=== PATIENT | female | born 1995 | race Caucasian/White ===

== ENCOUNTER 2018-12-25 16:48 | Emergency (ER) | payer SELFPAY | END 2018-12-25 18:48 | disposition home or self-care (01) | LOC: JERFT 16:48 ==

== ENCOUNTER 2019-06-17 04:15 | Emergency (ER) | payer SELFPAY ==
[2019-06-17 04:59] VITALS: TEMP 98; BMI 21.4
[2019-06-17] MEDS ORDERED: ONDANSETRON 4 MG/2 ML VIAL IVPUSH ONE (05:15)
[2019-06-17] MEDS ORDERED: ACETAMINOPHEN 1000 MG/100 ML VIAL (NON FORMULARY) IVPB ONE (05:15)
--- NOTE | 2019-06-17 05:15 | PDOC ---
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 Pt reported her pain is intermittent, only present when she cough, alleviated by not coughing. She reported she has had productive green cough x3 days, and her boyfriend has similar symptoms. She reported feeling warm yesterday, but did not take her temperature. She admitted to nausea. She admitted to two weeks of loose watery diarrhea. She denied vomiting, chest pain, shortness of breath, vaginal bleeding, vaginal discharge. Pt reported her LMP was 3-4 weeks ago, she took a urine test last week that was positive, this would be her first . ROS General: denied fever, chills, generalized weakness. HEENT: admitted to sore throat, rhinorrhea. denied ear pain. Cardiovascular: denied chest pain, palpitations, syncope, diaphoresis. Respiratory: admitted to cough, sputum production. denied shortness of breath, hemoptysis. Gastrointestinal: admitted to abdominal pain, nausea. denied vomiting, diarrhea , constipation, blood in stool. Genitourinary: denied dysuria, increased urinary frequency, hematuria, urinary incontinence, flank pain. Back: denied back pain. Musculoskeletal: denied joint pain, muscle pain, joint swelling. Neurological: denied headache, dizziness, numbness, tingling, weakness. Integumentary: denied rash, laceration, abrasion. Hematologic/Lymphatic: denied bruising or bleeding. PE Constitutional: Well-nourished, Well-developed, appearing stated age. HEENT: head is normocephalic, atraumatic. EOMI. PERRLA. no posterior pharyngeal erythema.no tonsillar swelling or exudates bilaterally. uvula midline. no peritonsillar swelling, tenderness or abscess. no jaw tenderness or misalignment. Neck: supple. Full ROM. Cardiovascular: regular heart rhythm. no murmurs. no pericardial friction rub. Respiratory: clear to auscultation bilaterally. no crackles, rhonchi or wheezing. no stridor. Gastrointestinal: soft, flat. tenderness to palpation in RLQ/suprapubic area/LLQ , worst in the LLQ. Positive rovsings. normal bowel sounds. no rebound, guarding , masses. negative obtruator. negative mcburneys. negative psoas. Extremities: peripheral pulses intact. no lower extremity edema. Neurological: CN 2-12 grossly intact. moves all four extremities. Psych: awake, alert, oriented x3. follows commands. answers questions appropriately. Pelvic: normal external genitalia. no CMT. no adnexal tenderness. white/yellow tinged discharge noted. <Hortencia Arce - Last Filed: 06/17/19 18:38> <Jr Cool - Last Filed: 06/19/19 10:43> - General Chief Complaint: Cold Symptoms Stated Complaint: COLD SYMPTOMS Time Seen by Provider: 06/17/19 04:32 Past History - Psycho Social/Smoking Cessation Hx Smoking History: Never smoked Have you smoked in the past 12 months: No Information on smoking cessation initiated: No Hx Alcohol Use: No Drug/Substance Use Hx: No <Hortencia Arce - Last Filed: 06/17/19 18:38> <Jr Cool - Last Filed: 06/19/19 10:43> - Past Medical History Allergies/Adverse Reactions: Allergies Allergy/AdvReac Type Severity Reaction Status Date / Time No Known Allergies Allergy Verified 12/25/18 16:53 Home Medications: Ambulatory Orders Nitrofurantoin Monohyd/M-Cryst [Macrobid -] 100 mg PO BID #14 capsule 12/25/18 *Physical Exam - Vital Signs Last Vital Signs Temp Pulse Resp BP Pulse Ox 98.0 F 83 18 122/96 100 06/17/19 04:45 06/17/19 04:45 06/17/19 04:45 06/17/19 04:45 06/17/19 04:45 <Hortencia Arce - Last Filed: 06/17/19 18:38> - Vital Signs Last Vital Signs Temp Pulse Resp BP Pulse Ox 98.0 F 82 17 119/85 99 06/17/19 04:45 06/17/19 11:47 06/17/19 11:47 06/17/19 11:47 06/17/19 11:47 <Jr Cool - Last Filed: 06/19/19 10:43> ED Treatment Course - LABORATORY CBC & Chemistry Diagram: 06/17/19 05:05 06/17/19 05:05 <Hortencia Arce - Last Filed: 06/17/19 18:38> - LABORATORY CBC & Chemistry Diagram: 06/17/19 05:05 06/17/19 05:05 - ADDITIONAL ORDERS Additional order review: 06/17/19 06:37 Urine Culture - Final Urine - Urine Clean Catch NO GROWTH OBTAINED 06/17/19 05:05 RBC 4.07 MCV 91.9 MCHC 34.4 RDW 13.2 MPV 7.2 L Neutrophils % 64.7 Lymphocytes % 24.9 Monocytes % 7.4 Eosinophils % 2.2 Basophils % 0.8 - RADIOLOGY Radiology Studies Ordered: Category Date Time Status TRANSVAGINAL ULTRASOUND US [US] Stat Ultrasound 06/17/19 05:44 Completed - Medications Given in the ED: ED Medications Discontinued Medications Generic Name Dose Route Start Last Admin Trade Name Marcela PRN Reason Stop Dose Admin Acetaminophen 1,000 mg 06/17/19 05:15 06/17/19 05:30 Ofirmev Injection - IVPB 06/17/19 05:16 1,000 mg ONCE ONE Administration Ondansetron HCl 4 mg 06/17/19 05:15 06/17/19 05:30 Zofran Injection IVPUSH 06/17/19 05:16 4 mg ONCE ONE Administration <Ou,Jr - Last Filed: 06/19/19 10:43> Medical Decision Making - Medical Decision Making 24 year old female with above PMH presented to ED for right sided abdominal pain associated with nausea, also c/o diarrhea x2 weeks, also c/o productive cough, feeling warm. Initial Vital Signs Temp Pulse Resp BP Pulse Ox 98.0 F 83 18 122/96 100 06/17/19 04:45 06/17/19 04:45 06/17/19 04:45 06/17/19 04:45 06/17/19 04:45 Afebrile. No tachycardia. No tachypnea. No hypotension. No hypoxia on room air. Labs ordered: CBC, CMP, serum , UA/UC, lipase, GC/Chlamydia swab Imaging ordered: none Medications ordered: zofran 4 mg IV once, tylenol IV once 06/17/19 06:43 CBC WBC 14.2 K/mm3 (4.0-10.0) H 06/17/19 05:05 RBC 4.07 M/mm3 (3.60-5.2) 06/17/19 05:05 Hgb 12.9 GM/dL (10.7-15.3) 06/17/19 05:05 Hct 37.4 % (32.4-45.2) 06/17/19 05:05 MCV 91.9 fl (80-96) 06/17/19 05:05 MCH 31.6 pg (25.7-33.7) 06/17/19 05:05 MCHC 34.4 g/dl (32.0-36.0) 06/17/19 05:05 RDW 13.2 % (11.6-15.6) 06/17/19 05:05 Plt Count 355 K/MM3 (134-434) 06/17/19 05:05 MPV 7.2 fl (7.5-11.1) L 06/17/19 05:05 Absolute Neuts (auto) 9.2 K/mm3 (1.5-8.0) H 06/17/19 05:05 Neutrophils % 64.7 % (42.8-82.8) 06/17/19 05:05 Lymphocytes % 24.9 % (8-40) 06/17/19 05:05 Monocytes % 7.4 % (3.8-10.2) 06/17/19 05:05 Eosinophils % 2.2 % (0-4.5) 06/17/19 05:05 Basophils % 0.8 % (0-2.0) 06/17/19 05:05 Nucleated RBC % 0 % (0-0) 06/17/19 05:05 Leukocytosis wiht left shift. No anemia. CMP Sodium 140 mmol/L (136-145) 06/17/19 05:05 Potassium 3.5 mmol/L (3.5-5.1) 06/17/19 05:05 Chloride 110 mmol/L (98-107) H 06/17/19 05:05 Carbon Dioxide 22 mmol/L (21-32) 06/17/19 05:05 Anion Gap 8 MMOL/L (8-16) 06/17/19 05:05 BUN 5.3 mg/dL (7-18) L 06/17/19 05:05 Creatinine 0.5 mg/dL (0.55-1.3) L 06/17/19 05:05 Est GFR (CKD-EPI)AfAm 154.81 06/17/19 05:05 Est GFR (CKD-EPI)NonAf 133.57 06/17/19 05:05 Random Glucose 79 mg/dL (74-106) 06/17/19 05:05 Calcium 8.8 mg/dL (8.5-10.1) 06/17/19 05:05 Total Bilirubin 0.2 mg/dL (0.2-1) 06/17/19 05:05 AST 15 U/L (15-37) 06/17/19 05:05 ALT 27 U/L (13-61) 06/17/19 05:05 Alkaline Phosphatase 59 U/L (45-117) 06/17/19 05:05 Total Protein 7.0 g/dl (6.4-8.2) 06/17/19 05:05 Albumin 3.5 g/dl (3.4-5.0) 06/17/19 05:05 Lipase 121 U/L (73-393) 06/17/19 05:05 Beta HCG, Quant 26494.9 mIU/ml 06/17/19 05:05 No electrolyte abnormalities. No SADIQ. No transaminitis. Lipase wnl. Serum beta elevated. Cannot do CT imaging, will wait for US to open at 0800, if normal pt may need MRI. Pt and mother informed, they agree with plan for care and are willing to wait. Pt signed out to Dr. Mcnally. <Hortencia Arce - Last Filed: 06/17/19 18:38> Discharge - Discharge Information Problems reviewed: Yes <Hortencia Arce - Last Filed: 06/17/19 18:38> <Jr Cool - Last Filed: 06/19/19 10:43> - Discharge Information Clinical Impression/Diagnosis: Nausea Abdominal pain Qualifiers: Abdominal location: right lower quadrant Qualified Code(s): R10.31 - Right lower quadrant pain Qualifiers: Weeks of gestation: less than 8 weeks Qualified Code(s): Z3A.01 - Less than 8 weeks gestation of Condition: Improved Disposition: HOME - Follow up/Referral Referrals: Adis Mcwilliams MD [Staff Physician] - - Patient Discharge Instructions Patient Printed Discharge Instructions: Common Discomforts and Bodily Changes During , Diet, DI for -- Discomforts and Remedies, DI for Abdominal Pain -- Early Additional Instructions: You were seen in the emergency department for the evaluation of your abdominal pain. Your MRI shows no infection. No appendicitis. However, you are and in the first trimester. I strongly encourage you to follow up with the OBGYN physician referred to you within 48 hours after discharge for follow up care and management. I am prescribing pre- vitamins for you to take one time per day. Please return to the emergency department if you have worsening symptoms or new concerning symptoms such as fever and worsening abdominal pain. Lo vieron en el departamento de emergencias para la evaluacin de lauren dolor abdominal. Lauren resonancia magntica no muestra infeccin. Sin apendicitis. Sin embargo, est embarazada y en el primer trimestre. Le recomiendo encarecidamente que nomi un seguimiento con el mdico de OBGYN que le remiti dentro de las 48 horas posteriores al juana para recibir atencin y tratamiento de seguimiento. Le receto vitaminas prenatales para que tome jake vez al da. Regrese al departamento de emergencias si tiene sntomas que empeoran o nuevos sntomas relacionados, fior fiebre y empeoramiento del dolor abdominal. Print Language: BARBADIAN
[2019-06-17] MEDS ORDERED: ACETAMINOPHEN INJECTION 100 ML IVPB ONE (05:22)
[2019-06-17] MEDS ORDERED: ONDANSETRON 4 MG/2 ML VIAL ONE (05:22)
--- NOTE | 2019-06-17 05:44 | PDOC ---
Attending Attestation - Resident Resident Name: Hortencia Arce - ED Attending Attestation I have performed the following: I have examined & evaluated the patient, The case was reviewed & discussed with the resident, I agree w/resident's findings & plan, Exceptions are as noted - HPI HPI: 06/17/19 05:42 24 F with no PMH presents to ED with abdominal pain. Pt states that she has intermittent pain in her RLQ that started 2 days ago. It is worse with coughing. Denies F/C. Denies N/V/D. Pt states that she is currently 3 weeks . - Physicial Exam PE: 06/17/19 05:43 "GENERAL: Awake, alert, and fully oriented, in no acute distress. HEAD: No signs of trauma EYES: PERRLA, EOMI, sclera anicteric, conjunctiva clear ENT: Auricles normal inspection, hearing grossly normal, nares patent, oropharynx clear without exudates. Moist mucosa NECK: Nontender, no stepoffs, Normal ROM, supple, no lymphadenopathy, JVD, or masses LUNGS: Breath sounds equal, clear to auscultation bilaterally. No wheezes, and no crackles HEART: Regular rate and rhythm, normal S1 and S2, no murmurs, rubs or gallops ABDOMEN: + RLQ TTP, normoactive bowel sounds. No guarding, no rebound. No masses EXTREMITIES: Normal range of motion, no edema. No clubbing or cyanosis. No cords, erythema, or tenderness NEUROLOGICAL: Cranial nerves II through XII intact. 5/5 strength and sensation in all extremities, Normal speech, normal gait, normal cerebellar function SKIN: Warm, Dry, normal turgor, no rashes or lesions noted. - Medical Decision Making 06/17/19 05:43 24 F with RLQ pain. Reportedly 3 weeks . - Labs, UA, UPT - IVF, tylenol - TVUS - Pelvic US to evaluate appendix - Possible CT/MRI Pt signed out to Dr. Huerta at 7AM, pending US and re-evaluation
[2019-06-17 05:50] LABS: BASO % 0.8 % (0-2.0); EOS % 2.2 % (0-4.5); HEMATOCRIT 37.4 % (32.4-45.2); HEMOGLOBIN 12.9 GM/dL (10.7-15.3); LYMPH % 24.9 % (8-40); MCH 31.6 pg (25.7-33.7); MCHC 34.4 g/dl (32.0-36.0); MEAN CELL VOLUME 91.9 fl (80-96); MEAN PLT VOLUME 7.2 fl (7.5-11.1); MONO % 7.4 % (3.8-10.2); NEUT % 64.7 % (42.8-82.8); PLATELET COUNT 355 K/MM3 (134-434); RBC 4.07 M/mm3 (3.60-5.2); RDW 13.2 % (11.6-15.6); WHITE BLOOD COUNT 14.2 K/mm3 (4.0-10.0)
[2019-06-17 06:15] LABS: ALBUMIN 3.5 g/dl (3.4-5.0); BILIRUBIN,TOTAL 0.2 mg/dL (0.2-1); BLOOD UREA NITROGEN 5.3 mg/dL (7-18); CALCIUM 8.8 mg/dL (8.5-10.1); CREATININE 0.5 mg/dL (0.55-1.3); POTASSIUM 3.5 mmol/L (3.5-5.1)
[2019-06-17 06:58] LABS: URINE APPEARANCE CLEAR; URINE BILIRUBIN NEGATIVE (NEGATIVE); URINE COLOR YELLOW; URINE GLUCOSE (UA) NEGATIVE (NEGATIVE); URINE KETONE NEGATIVE (NEGATIVE); URINE LEUK ESTERASE NEGATIVE (NEGATIVE); URINE NITRITE NEGATIVE (NEGATIVE); URINE PROTEIN NEGATIVE (NEGATIVE); URINE UROBILINOGEN 0.2 mg/dL (0.2-1.0)
--- NOTE | 2019-06-17 07:48 | PDOC ---
*Physical Exam - Vital Signs Last Vital Signs Temp Pulse Resp BP Pulse Ox 98.0 F 83 18 122/96 100 06/17/19 04:45 06/17/19 04:45 06/17/19 04:45 06/17/19 04:45 06/17/19 04:45 - Physical Exam Received sign out from Dr. Arce. 24 yo F with no past medical history presented to the emergency department with RLQ pain for 2 days. Intermittent duration with worsening with coughs. The patient states her LMP was 3-4 weeks ago with a positive at home test last week. Critical findings are positive . Patient has suspected appendicitis and will need it to be ruled out with pelvic MRI. ED Treatment Course - LABORATORY CBC & Chemistry Diagram: 06/17/19 05:05 06/17/19 05:05 - ADDITIONAL ORDERS Additional order review: Laboratory Results 06/17/19 06/17/19 06/17/19 06:37 06:37 05:05 Sodium Potassium Chloride Carbon Dioxide Anion Gap BUN Creatinine Est GFR (CKD-EPI)AfAm Est GFR (CKD-EPI)NonAf Random Glucose Calcium Total Bilirubin AST ALT Alkaline Phosphatase Total Protein Albumin Lipase Beta HCG, Quant 75322.9 Urine Color Yellow Urine Appearance Clear Urine pH 5.0 Ur Specific [place] 1.026 Urine Protein Negative Urine Glucose (UA) Negative Urine Ketones Negative Urine Blood Negative Urine Nitrite Negative Urine Bilirubin Negative Urine Urobilinogen 0.2 Ur Leukocyte Esterase Negative Urine HCG, Qual Positive 06/17/19 06/17/19 05:05 05:05 Sodium 140 Potassium 3.5 Chloride 110 H Carbon Dioxide 22 Anion Gap 8 BUN 5.3 L Creatinine 0.5 L Est GFR (CKD-EPI)AfAm 154.81 Est GFR (CKD-EPI)NonAf 133.57 Random Glucose 79 Calcium 8.8 Total Bilirubin 0.2 AST 15 ALT 27 Alkaline Phosphatase 59 Total Protein 7.0 Albumin 3.5 Lipase 121 Beta HCG, Quant Urine Color Urine Appearance Urine pH Ur Specific [place] Urine Protein Urine Glucose (UA) Urine Ketones Urine Blood Urine Nitrite Urine Bilirubin Urine Urobilinogen Ur Leukocyte Esterase Urine HCG, Qual 06/17/19 05:05 RBC 4.07 MCV 91.9 MCHC 34.4 RDW 13.2 MPV 7.2 L Neutrophils % 64.7 Lymphocytes % 24.9 Monocytes % 7.4 Eosinophils % 2.2 Basophils % 0.8 - Medications Given in the ED: ED Medications Discontinued Medications Generic Name Dose Route Start Last Admin Trade Name Marcela PRN Reason Stop Dose Admin Acetaminophen 1,000 mg 06/17/19 05:15 06/17/19 05:30 Ofirmev Injection - IVPB 06/17/19 05:16 1,000 mg ONCE ONE Administration Ondansetron HCl 4 mg 06/17/19 05:15 06/17/19 05:30 Zofran Injection IVPUSH 06/17/19 05:16 4 mg ONCE ONE Administration Medical Decision Making - Medical Decision Making Patient TVUS shows single IUP at 7 weeks 1 day of gestation. No free fluid noted in the cul-de-sac. Both ovaries appear unremarkable with normal vascular flow. Pelvic MRI shows no evidence of appendicits. No evidence for ectopic . No evidence of pelvic ascites or paracolic fluid collections. Patient was treated with tylenol. Upon reassessment, the patient has significant improvement in pain. Patient to be discharged with follow up with OBGYN within 48 hours after discharge for follow up care and management. dispo: discharge Discharge - Discharge Information Problems reviewed: Yes Clinical Impression/Diagnosis: Nausea Abdominal pain Qualifiers: Abdominal location: right lower quadrant Qualified Code(s): R10.31 - Right lower quadrant pain Qualifiers: Weeks of gestation: less than 8 weeks Qualified Code(s): Z3A.01 - Less than 8 weeks gestation of Condition: Improved Disposition: HOME - Admission No - Follow up/Referral Referrals: Adis Mcwilliams MD [Staff Physician] - - Patient Discharge Instructions Patient Printed Discharge Instructions: Common Discomforts and Bodily Changes During , Diet, DI for -- Discomforts and Remedies, DI for Abdominal Pain -- Early Additional Instructions: You were seen in the emergency department for the evaluation of your abdominal pain. Your MRI shows no infection. No appendicitis. However, you are and in the first trimester. I strongly encourage you to follow up with the OBGYN physician referred to you within 48 hours after discharge for follow up care and management. I am prescribing pre-ac vitamins for you to take one time per day. Please return to the emergency department if you have worsening symptoms or new concerning symptoms such as fever and worsening abdominal pain. Lo vieron en el departamento de emergencias para la evaluacin de luaren dolor abdominal. Lauren resonancia magntica no muestra infeccin. Sin apendicitis. Sin embargo, est embarazada y en el primer trimestre. Le recomiendo encarecidamente que nomi un seguimiento con el mdico de OBGYN que le remiti dentro de las 48 horas posteriores al juana para recibir atencin y tratamiento de seguimiento. Le receto vitaminas prenatales para que tome jake vez al da. Regrese al departamento de emergencias si tiene sntomas que empeoran o nuevos sntomas relacionados, fior fiebre y empeoramiento del dolor abdominal. Print Language: PERSIAN - Post Discharge Activity
--- NOTE | 2019-06-17 10:37 | PDOC ---
*Physical Exam - Vital Signs Last Vital Signs Temp Pulse Resp BP Pulse Ox 98.0 F 83 18 122/96 100 06/17/19 04:45 06/17/19 04:45 06/17/19 04:45 06/17/19 04:45 06/17/19 04:45 - Physical Exam Gastrointestinal/Abdominal: positive: Normal Bowel Sounds, Flat, Soft. negative : Tender, Distended, Guarding, Rebound, Tenderness ED Treatment Course - LABORATORY CBC & Chemistry Diagram: 06/17/19 05:05 06/17/19 05:05 - ADDITIONAL ORDERS Additional order review: Laboratory Results 06/17/19 06/17/19 06/17/19 06:37 06:37 05:05 Sodium Potassium Chloride Carbon Dioxide Anion Gap BUN Creatinine Est GFR (CKD-EPI)AfAm Est GFR (CKD-EPI)NonAf Random Glucose Calcium Total Bilirubin AST ALT Alkaline Phosphatase Total Protein Albumin Lipase Beta HCG, Quant 85161.9 Urine Color Yellow Urine Appearance Clear Urine pH 5.0 Ur Specific [place] 1.026 Urine Protein Negative Urine Glucose (UA) Negative Urine Ketones Negative Urine Blood Negative Urine Nitrite Negative Urine Bilirubin Negative Urine Urobilinogen 0.2 Ur Leukocyte Esterase Negative Urine HCG, Qual Positive 06/17/19 06/17/19 05:05 05:05 Sodium 140 Potassium 3.5 Chloride 110 H Carbon Dioxide 22 Anion Gap 8 BUN 5.3 L Creatinine 0.5 L Est GFR (CKD-EPI)AfAm 154.81 Est GFR (CKD-EPI)NonAf 133.57 Random Glucose 79 Calcium 8.8 Total Bilirubin 0.2 AST 15 ALT 27 Alkaline Phosphatase 59 Total Protein 7.0 Albumin 3.5 Lipase 121 Beta HCG, Quant Urine Color Urine Appearance Urine pH Ur Specific [place] Urine Protein Urine Glucose (UA) Urine Ketones Urine Blood Urine Nitrite Urine Bilirubin Urine Urobilinogen Ur Leukocyte Esterase Urine HCG, Qual 06/17/19 05:05 RBC 4.07 MCV 91.9 MCHC 34.4 RDW 13.2 MPV 7.2 L Neutrophils % 64.7 Lymphocytes % 24.9 Monocytes % 7.4 Eosinophils % 2.2 Basophils % 0.8 - RADIOLOGY Radiology Studies Ordered: Category Date Time Status PELVIS MRI WITHOUT CONTRAST [MRI] Stat MRI 06/17/19 07:29 Completed - Medications Given in the ED: ED Medications Discontinued Medications Generic Name Dose Route Start Last Admin Trade Name Freq PRN Reason Stop Dose Admin Acetaminophen 1,000 mg 06/17/19 05:15 06/17/19 05:30 Ofirmev Injection - IVPB 06/17/19 05:16 1,000 mg ONCE ONE Administration Ondansetron HCl 4 mg 06/17/19 05:15 06/17/19 05:30 Zofran Injection IVPUSH 06/17/19 05:16 4 mg ONCE ONE Administration Medical Decision Making - Medical Decision Making 06/17/19 10:36 Unknown presents to the emergency department right lower quadrant pain Patient sent for ultrasound signed out to me pending MRI Reevaluation patient feels much better no longer having abdominal discomfort repeat abdominal examination is benign there is no rebound there is no guarding there is no right lower quadrant tenderness to palpation MRI abdomen pelvis demonstrates no evidence of acute appendicitis Transvaginal ultrasound demonstrates a 7-week intrauterine All findings transmitted to patient. She will follow-up with [facility] she will return to the emergency department for any fever severe worsening symptoms or for any concerns. Discharge - Discharge Information Problems reviewed: Yes Clinical Impression/Diagnosis: Abdominal pain Qualifiers: Abdominal location: right lower quadrant Qualified Code(s): R10.31 - Right lower quadrant pain Qualifiers: Weeks of gestation: less than 8 weeks Qualified Code(s): Z3A.01 - Less than 8 weeks gestation of Condition: Improved Disposition: HOME - Admission No - Follow up/Referral Referrals: Adis Mcwilliams MD [Staff Physician] - - Patient Discharge Instructions Patient Printed Discharge Instructions: Common Discomforts and Bodily Changes During , Diet, DI for -- Discomforts and Remedies, DI for Abdominal Pain -- Early Additional Instructions: You were seen in the emergency department for the evaluation of your abdominal pain. Your MRI shows no infection. No appendicitis. However, you are and in the first trimester. I strongly encourage you to follow up with the OBGYN physician referred to you within 48 hours after discharge for follow up care and management. I am prescribing pre-ac vitamins for you to take one time per day. Please return to the emergency department if you have worsening symptoms or new concerning symptoms such as fever and worsening abdominal pain. Lo vieron en el departamento de emergencias para la evaluacin de guaman dolor abdominal. Guaman resonancia magntica no muestra infeccin. Sin apendicitis. Sin embargo, est embarazada y en el primer trimestre. Le recomiendo encarecidamente que nomi un seguimiento con el mdico de OBGYN que le remiti dentro de las 48 horas posteriores al juana para recibir atencin y tratamiento de seguimiento. Le receto vitaminas prenatales para que tome jake vez al da. Regrese al departamento de emergencias si tiene sntomas que empeoran o nuevos sntomas relacionados, fior fiebre y empeoramiento del dolor abdominal. Print Language: [place] - Post Discharge Activity
[2019-06-17 11:48] VITALS: BP 119/85; PULSE 82
== END 2019-06-17 11:46 | disposition home or self-care (01) ==
LOC: JER 04:15
PROC: 3E033NZ Introduction of Analgesics, Hypnotics, Sedatives into Peripheral Vein, Percutaneous Approach (ICD-10-PCS; principal; 2019-06-17)
PROC: 3E033GC Introduction of Other Therapeutic Substance into Peripheral Vein, Percutaneous Approach (ICD-10-PCS; 2019-06-17)
DX: O26.891 Other specified pregnancy related conditions, first trimester (principal); R10.9 Unspecified abdominal pain; R05 Cough; Z3A.01 Less than 8 weeks gestation of pregnancy
CPT/HCPCS: 36415; 72195-TC; 76830-TC; 80053; 81003; 83690; 84702; 84703; 85025; 87086; 87491; 87591; 99283-25; J0131